=== PATIENT | male | born 1965 | race Caucasian/White ===

== ENCOUNTER 2019-09-09 06:38 | Day surgery (SDC) | payer BC ==
[~2019-09-09 06:38] MED LIST: Dextrose 5%-0.45% NaCl 1,000 ML IV SCH; Midazolam 1 MG/ML 2 ML SDV ONE; Sodium Chloride 0.9% 10 ML Syringe FLUSH PRN; fentaNYL 100 MCG/2 ML SDV ONE
[2019-09-09] MEDS ORDERED: fentaNYL 100 MCG/2 ML SDV IV ONE ×3 (06:39→07:47)
[2019-09-09] MEDS ORDERED: Midazolam 1 MG/ML 2 ML SDV IV ONE ×6 (06:39→07:53)
--- NOTE | 2019-09-09 08:32 | OR ---
DATE: 09/09/2019 PROCEDURES: Total colonoscopy, NBI, and cold snare polypectomy. INSTRUMENT USED: PCF-H190DL Olympus video colonoscope. PREMEDICATIONS: Fentanyl 100 mcg intravenous, Versed 4 mg intravenous, nasal O2 cannula. The procedure was done under pulse oximetry, BP recording, and youth nutritional monitor. INDICATION: The patient with Hemoccult positive stools. Colonoscopic examination is done for detection of any polypoid lesions and removal, endoscopic hemostasis therapy if needed. DESCRIPTION OF PROCEDURE: Initial rectal exam was unremarkable. Rigid anoscopy was normal. The colonoscope was passed with ease. Numerous scattered diverticula were noted in the distal left colon along with some deformity. The scope was passed with ease up to the ileocecal area. Photographs were taken of the cecum showing 8 mm sized benign-appearing superficial sessile polyp, NBI views were obtained, cold snare polypectomy was done, the tissue was retrieved and sent for histopathology. Post polypectomy photographs were taken. No bleeding was noted from any of the visualized areas at the commencement of the examination. The bowel preparation was found to be adequate, [place] scale 2 in all areas. No stricture. No vascular ectasia. No large isolated ulcerations seen. No evidence of diffuse inflammatory bowel disease in the form of friability, contact bleeding, or ulcerations. Probing the proximal sides of folds and flexures using adequate distention and clearing up the stool material, withdrawal of the scope was made, cecum to rectum time over 6 minutes. No bleeding was noted from any of the visualized areas at the completion of examination. IMPRESSION: 1. Diverticulosis. 2. Cecal polyp. The patient tolerated the procedure well. [facility] /[id number]
== END 2019-09-09 10:09 | disposition home or self-care (01) ==
LOC: DL.ENDO 06:38
PROVIDERS: ATTEND Internal Medicine Gastroenterology
DX: K57.31 Diverticulosis of large intestine without perforation or abscess with bleeding (principal); D12.0 Benign neoplasm of cecum; I10 Essential (primary) hypertension; E66.09 Other obesity due to excess calories; K43.9 Ventral hernia without obstruction or gangrene; G43.909 Migraine, unspecified, not intractable, without status migrainosus; M19.90 Unspecified osteoarthritis, unspecified site; Z68.35 Body mass index [BMI] 35.0-35.9, adult
CPT/HCPCS: 45385; J2250; J3010; J7042

== ENCOUNTER 2021-12-13 00:16 | Emergency (ER) | payer BC ==
[2021-12-13] MEDS ORDERED: Sodium Chloride 0.9% 1,000 ML IV ONE (00:31)
[2021-12-13] MEDS ORDERED: Octreotide 100 MCG in Sodium Chloride 0.9% 100 ML IV ONE (01:03)
[2021-12-13] MEDS ORDERED: Pantoprazole 40 MG Vial IVPUSH ONE (01:03)
[2021-12-13] MEDS ORDERED: Iopamidol 612 MG/ML 100 ML Bottle IVPUSH ONE (01:04)
[2021-12-13 01:07] LABS: ANION GAP 15.8 mEq/L (7-13); CHLORIDE,CL 106 mmol/L (98-107); SODIUM,NA 142 mmol/L (136-145)
== END 2021-12-13 04:15 ==
LOC: DL.ED 00:16
DX: K57.32 Diverticulitis of large intestine without perforation or abscess without bleeding (principal); E78.00 Pure hypercholesterolemia, unspecified; E66.9 Obesity, unspecified; Z68.34 Body mass index [BMI] 34.0-34.9, adult; Z79.899 Other long term (current) drug therapy; Z20.822 Contact with and (suspected) exposure to COVID-19
CPT/HCPCS: 36415; 74177; 80053; 82150; 82272; 83605; 83690; 83735; 83880; 85025; 85610; 86850; 86900; 86901; 87040; 96365; 96366; 96375; 99285; 99285-25; C9113; J2354-JA; J7030; Q9967; U0002

== ENCOUNTER 2021-12-25 05:56 | Emergency (ER) | payer BC ==
[2021-12-25] MEDS ORDERED: Phenylephrine 0.5% Nasal Spray 15 ML Bot NASBOTH ONE (06:14)
== END 2021-12-25 06:45 | disposition home or self-care (01) ==
LOC: DL.ED 05:56
DX: R04.0 Epistaxis (principal); E78.00 Pure hypercholesterolemia, unspecified; I10 Essential (primary) hypertension; E66.9 Obesity, unspecified; Z68.32 Body mass index [BMI] 32.0-32.9, adult; Z79.899 Other long term (current) drug therapy
CPT/HCPCS: 99283; A9270

== ENCOUNTER 2022-07-08 06:31 | Day surgery (SDC) | payer BC ==
[2022-07-08] MEDS ORDERED: fentaNYL 100 MCG/2 ML SDV IV ONE ×3 (06:32→07:27)
[2022-07-08] MEDS ORDERED: Midazolam 1 MG/ML 2 ML SDV IV ONE ×5 (06:32→07:35)
[2022-07-08] MEDS ORDERED: Sodium Chloride 0.9% 10 ML Syringe FLUSH SCH (09:00)
== END 2022-07-08 09:40 | disposition home or self-care (01) ==
LOC: DL.ENDO 06:31
PROVIDERS: ATTEND Internal Medicine Gastroenterology
DX: K63.5 Polyp of colon (principal); K57.31 Diverticulosis of large intestine without perforation or abscess with bleeding; E66.09 Other obesity due to excess calories; I10 Essential (primary) hypertension; Z86.010 Personal history of colon polyps; Z68.32 Body mass index [BMI] 32.0-32.9, adult
CPT/HCPCS: 45378; J2250; J3010; J7042